=== PATIENT | male | born 1945 | race Caucasian/White ===

== ENCOUNTER 2022-11-07 18:45 | Emergency (ER) | payer MEDICARE, OTHER ==
[2022-11-07 18:49] VITALS: BP 160/80
--- NOTE | 2022-11-07 19:05 | ED Physician Documentation ---
History of Present Illness - Stated complaint Stated Complaint: NOSE BLEED - Chief complaint Chief Complaint: Heent - History obtained from History obtained from: Patient - Additonal information Additional information: Very nice 77-year-old gentleman who presents with a and nosebleed.Patient states those blood spontaneously this Evening after he blew his nose. He had also been working out in the yard all day and frequently bowling and having his nose. Denies any other trauma to the area. He has a history of heavy nosebleeds do not call frequently. He has had to have silver nitrate of the nose in the past, for anterior epistaxis, no history of posterior epistaxis. He has been seen By ENT in the past according to him and I did evaluation" on nothing." He is on aspirin, no anticoagulation. Review of Systems Constitutional: reports: Reviewed and negative Nose: reports: Epistaxis. denies: Rhinorrhea / runny nose, Congestion, Sinus pressure / pain, Foreign Body Cardiac: reports: Reviewed and negative Respiratory: reports: Reviewed and negative GI: reports: Reviewed and negative PD PAST MEDICAL HISTORY - Past Medical History Past Medical History: Yes Cardiovascular: High cholesterol - Past Surgical History Past Surgical History: No - Present Medications Home Medications: Ambulatory Orders Medication Instructions Recorded Confirmed Sulfamethoxazole/Trimethoprim 1 each PO BID 7 Days tablet 10/16/15 [Bactrim Ds Tablet] - Allergies Allergies/Adverse Reactions: Allergies Allergy/AdvReac Type Severity Reaction Status Date / Time No Known Drug Allergies Allergy Verified 11/07/22 18:47 - Social History Does the pt smoke?: No Smoking Status: Never smoker Does the pt drink ETOH?: No Does the pt have substance abuse?: No PD ED PE NORMAL - Vitals Vital signs reviewed: Yes - General General: Alert and oriented X 3, No acute distress, Well developed/nourished - HEENT HEENT: Atraumatic, Moist mucous membranes, Pharynx benign, Other (No blood in the posterior pharynx. There is hyperemia of the left septum with no active bleeding, there is no blood in the right nare.Septum is midline, there appears to be no trauma to the nose and there is no external injury.) Results - Vitals Vitals: Vital Signs - 24 hr 11/07/22 18:47 Temperature 36.5 C Heart Rate 86 Respiratory 16 Rate Blood Pressure 160/80 H O2 Saturation 100 Oxygen O2 Source Room air PD Medical Decision Making - ED course Complexity details: re-evaluated patient, considered differential, d/w patient, d/w family ED course: Very nice 77-year-old male presented with left nare epistaxis. His nose was clamped prior to my evaluation and by the time I evaluated the patient he was no longer bleeding. There is no blood in the posterior pharynx. The nose was rinsed with normal saline and I did spray small amount of Afrin in it and Had a small area on the left testicle plexus that was oozing slightly and dabbed with a silver nitrate. The patient was monitored for an additional 15 minutes or so with no recurrent bleeding and remained vitally stable therefore he was discharged home. I did give him home epistaxis instructions and return precautions. Departure - Departure Disposition: 01 Home, Self Care Clinical Impression: Epistaxis Condition: Good Instructions: ED Nosebleed Comments: You presented with a nosebleed. We have sprayed some Afrin up there and also utilized silver nitrate and the nosebleed has stopped. Please try to keep the nasal mucosa moist, you can use triple antibiotic ointment or Vaseline and try to avoid blowing your nose. If you have recurrent issues, clamp the nose for at least 10 minutes and if this does not stop the bleeding, Return to the ER.
[2022-11-07] MEDS ORDERED: OXYMETAZOLINE HCL 100 SPRAYS BOTTLE NAS STA (19:48)
[2022-11-07] MEDS ORDERED: SILVER NITRATE APPLICATOR TOP STA (19:48)
--- OUTSIDE RECORDS SUMMARY | 2022-11-07 19:55 | EXTERNAL MEDICAL SUMMARY RPT | Continuity of Care Document ---
:1945 Author Organization [facility] Address [address] [place] [address] Phone Care Team Providers Name Role Phone Unavailable Unavailable Unavailable Marisela Lara Robert Unavailable Unavailable Allergies No information. Encounters No information. Functional Status No information. Immunizations No information. Medications date description facility 2022-08-26 00:00 [facility]ide [facility] 2022-08-27 00:00 fluocinonide [facility] 2022-08-26 00:00 tamsulosin [facility] 2022-08-27 00:00 tamsulosin [facility] 2022-08-26 00:00 fluocinonide [facility] 2022-08-27 00:00 fluocinonide [facility] 2022-08-26 00:00 tamsulosin [facility] 2022-08-27 00:00 tamsulosin [facility] 2022-08-26 00:00 atorvastatin [facility] 2022-08-27 00:00 atorvastatin [facility] 2022-08-26 00:00 atorvastatin [facility] 2022-08-27 00:00 atorvastatin [facility] 2022-08-26 00:00 aspirin [facility] 2022-08-27 00:00 aspirin [facility] 2022-08-26 00:00 tamsulosin [facility] 2022-08-27 00:00 tamsulosin [facility] 2022-08-26 00:00 atorvastatin [facility] 2022-08-27 00:00 atorvastatin [facility] 2022-08-26 00:00 atorvastatin [facility] 2022-08-27 00:00 atorvastatin [facility] 2022-08-26 00:00 fluocinonide [facility] 2022-08-27 00:00 fluocinonide [facility] 2022-08-26 00:00 tamsulosin [facility] 2022-08-27 00:00 tamsulosin [facility] 2022-08-26 00:00 fluocinonide [facility] 2022-08-27 00:00 fluocinonide [facility] Problems date description facility 2022-08-26 00:00 Bleeding [facility] 2022-08-26 00:00 Elevated blood-pressure reading [facility] without diagnosis of [facility] 2022-08-26 00:00 Hemorrhage, unspecified [facility] 2022-08-26 00:00 Elevated blood pressure reading [facility] without diagnosis of hypertension [facility] 2022-08-26 00:00 Elevated blood-pressure reading, [facility] without diagnosis of hypertension [facility] 2022-08-26 00:00 Hemorrhage, not elsewhere [facility] Procedures date description facility 2022-08-26 00:00 Visit Code Hold [facility] Results/Labs No information. Social History date description facility 2022-08-26 00:00 Former smoker [facility] [place] Vital Signs date measurement value units 2022-08-26 00:00 BMI 30.06 kg/m2 2022-08-26 00:00 BP_diastolic 78 mmHg 2022-08-26 00:00 BP_diastolic 83 mmHg 2022-08-26 00:00 BP_systolic 153 mmHg 2022-08-26 00:00 BP_systolic 168 mmHg 2022-08-26 00:00 heart_rate 68 /min 2022-08-26 00:00 heart_rate 79|| completed 2022-08-26 00:00 height_metric 165.1 cm 2022-08-26 00:00 height_standard 65 in 2022-08-26 00:00 respiration_rate 16 /min 2022-08-26 00:00 temperature_metric 36.72 C 2022-08-26 00:00 temperature_standard 98.1 F 2022-08-26 00:00 weight_metric 81.65 kg 2022-08-26 00:00 weight_standard 180 lb"
== END 2022-11-07 20:31 | disposition home or self-care (01) ==
LOC: ED 18:45
DX: R04.0 Epistaxis (principal)
CPT/HCPCS: 99281; 99282; A9270